=== PATIENT | female | born 1945 | race Caucasian/White ===

== ENCOUNTER 2017-03-30 05:58 | Day surgery (SDC) | payer MEDICARE, OTHER ==
--- NOTE | 2017-03-29 14:43 | PCM.PREANE ---
Preanesthetic Assessment - Anesthesia/Transfusion/Family Hx Anesthesia History: Prior Anesthesia Without Reaction Family History of Anesthesia Reaction: No Transfusion History: Prior Transfusion Without Reaction Intubation History: Unknown - Review of Systems General: No Symptoms Pulmonary: No Symptoms (Quit smoking 1999) Cardiovascular: No Symptoms (History of PVC's and SVT/last episode in August 2016) , Dyspnea on Exertion, Lightheadedness Gastrointestinal: No Symptoms (GERD) Neurological: No Symptoms (History of menigits as a child/ History of lower extremity edema) Other: Reports: Easy Bruising, Sinus Problem, Depression - Physical Assessment NPO Status Date: 03/29/17 NPO Status Time: 22:00 Pulse: 65 O2 Sat by Pulse Oximetry: 98 Respiratory Rate: 16 Blood Pressure: 140/80 Temperature: 36.2 C Height: 1.73 m Weight: 87 kg ASA Class: 2 Mental Status: Alert & Oriented x3 Airway Class: Mallampati = 2 Dentition: Reports: Normal Dentition, Caries Thyro-Mental Finger Breadths: 3 Mouth Opening Finger Breadths: 3 ROM/Head Extension: Full Lungs: Clear to Auscultation, Normal Respiratory Effort Cardiovascular: Regular Rate, Regular Rhythm - Lab Values: Laboratory Last Values MRSA (PCR) Negative 03/17/17 09:30 All lab values reviewed and noted and within acceptable ranges to proceed with scheduled procedure. - Imaging/EKG Impressions: EKG: SB rate=47, minimal left ventricular hypertrophy Stress Test: - Holter Monitor=- Echocardiogram: - - Allergies Allergies/Adverse Reactions: Allergies Allergy/AdvReac Type Severity Reaction Status Date / Time No Known Allergies Allergy Verified 03/29/17 15:42 - Anesthesia Plan Pre-Op Medication Ordered: None - Acknowledgements Anesthesia Type Planned: General Anesthesia (and Left interscalene block under us guidance for post operative pain control requested by Dr. Tucker.) Pt an Appropriate Candidate for the Planned Anesthesia: Yes Alternatives and Risks of Anesthesia Discussed w Pt/Guardian: Yes Pt/Guardian Understands and Agrees with Anesthesia Plan: Yes PreAnesthesia Questionnaire - HOME MEDS Home Medications: Home Meds Brinzolamide/Brimonidine Tart [Simbrinza 1%-0.2% Eye Drops] 1 drop EYEBOTH BID 03/29/17 [History] Ca Carbonate/Vitamin D3/Vit K [Calcium + D Soft Chewable Tab] 1 tab PO TID 03/29 [History] Fish Oil/Eunice-3 Fatty Acids [Fish Oil 1,000 MG] 1,000 mg PO TID 03/29/17 [ History] Sertraline [Zoloft] 50 mg PO DAILY 03/29/17 [History] - CURRENT (IN HOUSE) MEDS Current Meds: Current Medications Lactated Ringer's (Ringers, Lactated) 1,000 mls @ 125 mls/hr IV ASDIRECTED JASON Lidocaine/Sodium Bicarbonate (Buffered Lidocaine 1% In Ns 8.4%) 0.25 ml IV ONETIME PRN PRN Reason: Prior to IV Start Sodium Chloride (Saline Flush) 10 ml FLUSH ASDIRECTED PRN PRN Reason: Keep Vein Open
[~2017-03-30 05:58] MED LIST: EPINEPHrine 1 MG/ML SDV ONE; Lactated Ringers 1,000 ML IV SCH; Lidocaine 1%/Sod Bicarbonate in NS 8.4% 1 ML Syringe IV PRN; Ropivacaine 0.5% 5 MG/ML 30 ML SDV ONE; Sodium Chloride 0.9% 10 ML Syringe FLUSH PRN
[2017-03-30] MEDS ORDERED: Lidocaine 1% 6 ML ONE (06:07)
[2017-03-30] MEDS ORDERED: Dexamethasone 4 MG/ML 5 ML MDV ONE (06:07)
[2017-03-30] MEDS ORDERED: Rocuronium 50 MG/5 ML Vial ONE (06:07)
[2017-03-30] MEDS ORDERED: Ondansetron 4 MG/2 ML SDV ONE (06:07)
[2017-03-30] MEDS ORDERED: Lactated Ringers 1,000 ML ONE (06:07)
[2017-03-30] MEDS ORDERED: ceFAZolin 1 GM Vial ONE (06:07)
[2017-03-30] MEDS ORDERED: Propofol 200 MG/20 ML SDV ONE (06:08)
[2017-03-30] MEDS ORDERED: Midazolam 1 MG/ML 2 ML SDV ONE (06:08)
[2017-03-30] MEDS ORDERED: fentaNYL 250 MCG/5 ML SDV ONE (06:08)
[2017-03-30] MEDS ORDERED: EPINEPHrine 1 MG/ML 30 ML MDV ONE (07:30)
[2017-03-30] MEDS ORDERED: HYDROmorphone 0.5 MG/0.5 ML Syringe IVPUSH PRN (07:41)
[2017-03-30] MEDS ORDERED: fentaNYL 100 MCG/2 ML SDV IVPUSH PRN (07:41)
[2017-03-30] MEDS ORDERED: Ondansetron 4 MG/2 ML SDV IVPUSH PRN (07:41)
[2017-03-30] MEDS ORDERED: ePHEDrine 50 MG/ML SDV IVPUSH PRN (07:41)
[2017-03-30] MEDS ORDERED: Phenylephrine 1 MG in Sodium Chloride 0.9% 10 ML IV SCH (07:45)
[2017-03-30] MEDS ORDERED: Phenylephrine/Normal Saline 100 MCG/ML 10 ML Syringe ONE (08:01)
[2017-03-30] MEDS ORDERED: Bupivacaine 0.25% 10 ML SDV ONE (08:09)
[2017-03-30] MEDS ORDERED: Triamcinolone Acetonide 40 MG/ML 1 ML MDV ONE (08:09)
[2017-03-30] MEDS: Bupivacaine 0.5% 30 ML SDV ONE ×2 (08:20→08:23)
[2017-03-30] MEDS ORDERED: Neostigmine Methylsulfate 1 MG/ML 5 ML Syringe ONE (08:29)
--- NOTE | 2017-03-30 08:44 | PCM.POSTAN ---
POST ANESTHESIA ASSESSMENT - MENTAL STATUS Mental Status: Alert - VITAL SIGNS Pulse Rate: 73 SaO2: 97 Resp Rate: 16 Blood Pressure: 144/86 Temperature: 35.5 C - RESPIRATORY Respiratory Status: Respiratory Rate WNL, Airway Patent, O2 Saturation Stable, Supplemental Oxygen - CARDIOVASCULAR CV Status: Pulse Rate WNL, Blood Pressure Stable - GASTROINTESTINAL GI Status: No Symptoms - POST OP HYDRATION Hydration Status: Adequate & Stable
--- NOTE | 2017-03-30 10:48 | PCM48HPAN ---
Post Anesthesia Note - EVALUATION WITHIN 48HRS OF ANESTHETIC Vital Signs in Normal Range: Yes Patient Participated in Evaluation: Yes Respiratory Function Stable: Yes Airway Patent: Yes Cardiovascular Function Stable: Yes Hydration Status Stable: Yes Pain Control Satisfactory: Yes Nausea and Vomiting Control Satisfactory: Yes Mental Status Recovered: Yes
--- NOTE | 2017-03-30 12:30 | PCM.OPNOTE ---
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
--- NOTE | 2017-03-30 15:28 | PCM.SN ---
- Free Text/Narrative Note: Anesthesia Note: (Left Interscalene block note) Date: 03/30/2017 Time Out: 633 Start: 633 Stop: 647 Surgical Procedure: Left Shoulder Video Arthroscopy with Extensive Debridement Diagnosis: Left Shoulder Rotator Cuff Tear Current Procedure: Left interscalene block under US guidance for postoperative pain control requested by Dr. Tucker. Patient chart reviewed, risk/benefits discussed with patient, consent obtained. Patient positioned supine, monitors/alarms on, oxygen placed via nasal cannula at 2 LPM. IV sedation administered: Versed 1mg IV @ 0634 Left shoulder prepped with two chloropreps. Sterile drapes placed with aseptic technique noted. Under US guidance, left subclavian artery visualized along with the left brachial plexus. Plexus followed up to C6 cricoid level, and area localized with 2mls of 1% lidocaine. 22gauge 2 inch stimiplex needle advanced under US with 0.6mV with stimulation of biceps noted. Good stimulation noted with decreased voltage and absent at 0.2mVs. 1ml of Normal Saline injected with loss of stimulation noted to confirm needle not placed intraneurally. Incremental dosing of 5mls with negative aspiration noted prior to each injection of 0.5% ropivacaine with 1:200,000 epinephrine. Total volume=25mls. Please refer to nurses noted for vital signs. Tiffanie Shaw CRNA
--- NOTE | 2017-04-05 13:09 | PCM.OPNOTE ---
- General Post-Op/Procedure Note Date of Surgery/Procedure: 03/30/17 Operative Procedure(s): left shoulder video arthroscopy with extensive debridement and corticosteroid injection Pre Op Diagnosis: left shoulder rotator cuff tear Post-Op Diagnosis: left shoulder glenohumeral arthrosis with high grade partial thickness rotator cuff tear Anesthesia Technique: General ET Tube, Regional Block Primary Surgeon: Deshaun Tucker Anesthesia Provider: Tiffanie Shaw Product Technician: Carol Mendoza in mLs: 5 Complications: None Condition: Good
--- NOTE | 2017-04-05 16:01 | OR ---
DATE OF OPERATION: 03/30/2017 SURGEON: Deshaun Tucker MD OPERATION PERFORMED: Left shoulder video arthroscopy with extensive debridement, corticosteroid injection. PREOPERATIVE DIAGNOSIS: Left shoulder rotator cuff tear. POSTOPERATIVE DIAGNOSIS: Left shoulder glenohumeral arthrosis of high-grade partial thickness rotator cuff tear. ANESTHESIA: General endotracheal intubation with regional interscalene block. PROFILER: Carol Mendoza PA-C. ANESTHESIA PROVIDER: Tiffanie Shaw CRNA. ESTIMATED BLOOD LOSS: Less than 5 mL. COMPLICATIONS: None. CONDITION: Stable. DESCRIPTION OF PROCEDURE: The patient was identified in the preop holding area. Proper site was identified by surgeon. The patient was taken back to the operating theater where after adequate anesthesia, the patient was placed in a lazy right lateral decubitus position. A wedge was placed posteriorly. All bony prominences were well padded. The left upper extremity was then sterilely prepped and draped in the usual sterile fashion. OR time-out was performed. The patient received 2 g IV Ancef and 12 pounds of traction was applied to the left upper extremity. Standard posterior incision was made. Scope trocar was introduced to the glenohumeral joint. At this time, with the use of a spinal needle, anterior portal was also created with from an outside-in technique. 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 At this time, there was bone to be loose body in the axillary recess. At this time, this was debrided out. The patient was noted to have significant synovitis as well and this was debrided. The patient's subscapularis tendon was intact. Supraspinatus showed significant high-grade partial-thickness tearing of the articular side. Otherwise, the patient's biceps showed significant erythema as well. With the use of resector, all synovitis that could be reached as well as loose body was resected. At this time, attention was turned to the subacromial space. There was significant erythematous tissue noted at the subacromial space. An extensive debridement was then done at the subacromial space as well. At this time, it was again noted that the patient had significant high-grade partial-thickness tearing of the supraspinatus tendon. Otherwise, there was no significant pathology of subacromial space. At this time, it was decided we would do an intra-articular injection in the glenohumeral joint as well. The spinal needle was placed in the glenohumeral joint and 2 mL of 40 mg Kenalog and 4 mL of 0.25% Marcaine were injected into the left glenohumeral joint after excess saline had been removed. The patient then had a sterile soft dressing applied as well as a sling and was sent to PACU in stable condition. MISAEL /[id number]
== END 2017-03-30 11:00 | disposition home or self-care (01) ==
LOC: JD.SDS 05:58
PROVIDERS: ATTEND Orthopaedic Surgery
DX: M75.112 Incomplete rotator cuff tear or rupture of left shoulder, not specified as traumatic (principal); E78.5 Hyperlipidemia, unspecified; Z79.899 Other long term (current) drug therapy; Z87.891 Personal history of nicotine dependence
CPT/HCPCS: 20610; 29823; 64415; 87641; J0171; J0690; J1100; J2250; J2405; J2710; J2795; J3010; J3301; J7120; 01630; J2704

== ENCOUNTER 2021-03-26 14:51 | Emergency (ER) | payer MEDICARE, OTHER | END 2021-03-26 16:28 | disposition home or self-care (01) | LOC: JD.ED 14:51 | DX: I26.99 Other pulmonary embolism without acute cor pulmonale (principal); E78.00 Pure hypercholesterolemia, unspecified; Z79.01 Long term (current) use of anticoagulants | CPT/HCPCS: 99284 ==

== ENCOUNTER 2021-09-17 11:57 | Emergency (ER) | payer MEDICARE, OTHER ==
[2021-09-17] MEDS ORDERED: Sodium Chloride 0.9% 10 ML Syringe FLUSH ONE (12:23)
[2021-09-17] MEDS ORDERED: Iopamidol 755 Mg/ML 100 ML Bottle IVPUSH ONE (12:23)
[2021-09-17] MEDS ORDERED: Sodium Chloride 0.9% 100 ML IV SCH (12:30)
[2021-09-17] MEDS ORDERED: Heparin Sodium 5,000 Units/ML Vial IVPUSH ONE (14:38)
[2021-09-17] MEDS ORDERED: Heparin Sodium/D5W 25,000 UNITS/500 ML BAG IV SCH (14:45)
== END 2021-09-17 16:33 ==
LOC: JD.ED 11:57
DX: I26.99 Other pulmonary embolism without acute cor pulmonale (principal); Z79.01 Long term (current) use of anticoagulants; Z20.822 Contact with and (suspected) exposure to COVID-19
CPT/HCPCS: 36415; 71275; 80053; 83605; 84484; 85025; 85610; 85730; 87040; 93005; 96361; 96365; 96366; 99285; J1644; J3490; Q9967; U0002

== ENCOUNTER 2023-11-27 07:15 | Day surgery (SDC) | payer MEDICARE, OTHER ==
[~2023-11-27 07:15] MED LIST changes: -EPINEPHrine 1 MG/ML SDV ONE; -Lactated Ringers 1,000 ML IV SCH; +Lidocaine 1% 5 ML VIAL ONE; -Lidocaine 1%/Sod Bicarbonate in NS 8.4% 1 ML Syringe IV PRN; +Propofol 200 MG/20 ML SDV ONE; -Ropivacaine 0.5% 5 MG/ML 30 ML SDV ONE; +Sodium Chloride 0.9% 10 ML Syringe FLUSH SCH; +ceFAZolin 2 GM Vial ONE; +fentaNYL 100 MCG/2 ML SDV ONE
[2023-11-27] MEDS ORDERED: Triamcinolone Acetonide 40 MG/ML 1 ML SDV ONE (07:30)
[2023-11-27] MEDS: Lactated Ringers 1,000 ML IV SCH (07:30)
[2023-11-27] MEDS ORDERED: Ropivacaine 0.5% 5 MG/ML 30 ML SDV ONE (07:41)
[2023-11-27] MEDS ORDERED: EPINEPHrine 1 MG/ML SDV ONE (07:41)
[2023-11-27] MEDS ORDERED: Dexamethasone 4 MG/ML 5 ML MDV ONE (07:43)
[2023-11-27] MEDS ORDERED: Lidocaine 1% 2 ML ONE (07:44)
[2023-11-27] MEDS ORDERED: Ketamine 200 MG/20 ML MDV ONE (08:12)
[2023-11-27] MEDS ORDERED: Ondansetron 4 MG/2 ML SDV ONE (08:18)
[2023-11-27] MEDS ORDERED: HYDROmorphone 0.5 MG/0.5 ML Syringe ONE ×2 (08:21→09:44)
[2023-11-27] MEDS ORDERED: Lactated Ringers 1,000 ML ONE (08:26)
[2023-11-27] MEDS ORDERED: ePHEDrine 50 MG/ML SDV ONE (08:27)
[2023-11-27] MEDS ORDERED: fentaNYL 250 MCG/5 ML SDV ONE (08:32)
[2023-11-27] MEDS ORDERED: Ondansetron 4 MG/2 ML SDV IVPUSH PRN (08:51)
[2023-11-27] MEDS: Morphine 8 MG, EPINEPHrine 0.3 MG, Cefuroxime 750 MG, Ketorolac 30 MG, Sodium Chloride ... PRN (09:17)
[2023-11-27] MEDS ORDERED: Ketorolac 15 MG/ML SDV ONE (09:23)
[2023-11-27] MEDS: Tranexamic Acid 1,000 MG/10 ML Vial ONE (09:24)
[2023-11-27] MEDS: Vancomycin 1 GM SDV ONE (09:24)
[2023-11-27] MEDS: Triamcinolone Acetonide 40 MG/ML 1 ML SDV ONE (09:42)
[2023-11-27] MEDS: Bupivacaine 0.25% 10 ML SDV ONE (09:42)
[2023-11-27] MEDS: fentaNYL 100 MCG/2 ML SDV IVPUSH PRN (09:59)
[2023-11-27] MEDS: HYDROmorphone 0.5 MG/0.5 ML Syringe IVPUSH PRN (10:13)
[2023-11-27] MEDS: oxyCODONE 5 MG Tab PO PRN (10:49)
== END 2023-11-27 16:15 | disposition home or self-care (01) ==
LOC: JD.SDS 07:15
PROVIDERS: ATTEND Orthopaedic Surgery
DX: M17.0 Bilateral primary osteoarthritis of knee (principal); I73.9 Peripheral vascular disease, unspecified; I10 Essential (primary) hypertension; I25.10 Atherosclerotic heart disease of native coronary artery without angina pectoris; I26.02 Saddle embolus of pulmonary artery with acute cor pulmonale; I27.82 Chronic pulmonary embolism; R73.03 Prediabetes; D75.89 Other specified diseases of blood and blood-forming organs; M85.80 Other specified disorders of bone density and structure, unspecified site; J44.9 Chronic obstructive pulmonary disease, unspecified; Z79.899 Other long term (current) drug therapy; Z79.01 Long term (current) use of anticoagulants; Z87.891 Personal history of nicotine dependence
CPT/HCPCS: 0055T; 20610; 27447; 64447; 73560; 97110; 97161; A9270; C1713; C1776; J0171; J0665; J0690; J0697; J1100; J1170; J1885; J2270; J2405; J2704; J2795; J3010; J3301; J3370; J7120; 01402; 01420; 99100; J3490

== ENCOUNTER 2024-11-22 14:39 | Emergency (ER) | payer MEDICARE, OTHER | END 2024-11-22 16:40 | disposition home or self-care (01) | LOC: JD.ED 14:39 | DX: S81.811A Laceration without foreign body, right lower leg, initial encounter (principal); K21.9 Gastro-esophageal reflux disease without esophagitis; E66.9 Obesity, unspecified; Z79.899 Other long term (current) drug therapy; W07.XXXA Fall from chair, initial encounter | CPT/HCPCS: 12002; 99282; J2003; 99283 ==